=== PATIENT | female | born 1945 | race Caucasian/White ===

== ENCOUNTER → 2019-11-14 | Outpatient (CLI) | payer MEDICARE, OTHER ==
[~2019-11-14] MED LIST: Cyclobenzaprine5 MG PO; ESTR2 PO; LOSA50 PO; NAPR550 PO; Norco 5-325 Ta1 EACH PO; PARO10 PO; Percocet 5-3251 EACH PO; Robaxin500 MG PO; SIMV40 PO; Voltaren100 GM PO; ZOLP10 PO; [UNRECOGNIZED DRUG - REMARK]; [UNRECOGNIZED DRUG - REMARK]
[2019-11-14 16:16] LABS: BASOPHILS PERCENT AUTO 1 % (0-2); EOSINOPHILS ABSOLUTE AUTO 0.26 K/mm3 (0.00-0.68); EOSINOPHILS PERCENT AUTO 3 % (0-6); Hematocrit 41.4 % (33.0-51.0); Hemoglobin 13.9 g/dL (11.5-16.0); IMMATURE GRAN ABSOLUTE AUTO 0.01 K/mm3 (0.00-0.10); IMMATURE GRAN PERCENT AUTO 0 % (0-1); LYMPHOCYTES ABSOLUTE AUTO 2.09 K/mm3 (0.84-5.20); LYMPHOCYTES PERCENT AUTO 27 % (21-46); MONOCYTES PERCENT AUTO 14 % (4-13); Mean Corpuscular HGB 31.4 pg (26.0-34.0); Mean Corpuscular HGB Conc 33.6 g/dL (31.5-36.5); Mean Corpuscular Volume 94 fL (80-100); Mean Platelet Volume 10.7 fL (9.1-12.4); NEUTROPHILS ABSOLUTE AUTO 4.18 K/mm3 (1.96-9.15); NEUTROPHILS PERCENT AUTO 54 % (41-73); Platelet Count 250 K/mm3 (150-400); RDW Coefficient Variation 13.3 % (11.7-14.2); RDW Standard Deviation 45.7 fL (35.1-46.3); Red Blood Cell Count 4.43 M/mm3 (3.80-5.20); White Blood Cell Count 7.74 K/mm3 (4.00-11.30)
[2019-11-14 16:29] LABS: Alanine Aminotransfer (ALT/SGP 33 U/L (12-78); Albumin, Blood 3.7 g/dL (3.4-5.0); Alk Phos 85 U/L (40-126); Anion Gap 12 mmol/L (6-16); Aspartate Aminotrans (AST/SGOT 21 U/L (12-37); Bilirubin, Total 0.2 mg/dL (0.1-1.0); Blood Urea Nitrogen 22 mg/dL (8-24); Bun/Creatinine Ratio 20.2 (12.0-20.0); CO2, Blood 25 mmol/L (21-32); Calcium, Blood 9.2 mg/dL (8.5-10.1); Chloride, Blood 103 mmol/L (98-108); Creatinine, Blood 1.09 mg/dL (0.40-1.00); Globulin, Blood 3.7 g/dL (2.2-4.0); Glomerular Filtration Rate 49 (60-); Glucose, Blood 93 mg/dL (70-99); Potassium, Blood 4.1 mmol/L (3.5-5.5); Sodium, Blood 140 mmol/L (136-145); Total Protein, Blood 7.4 g/dL (6.4-8.2)
[2019-11-14 16:30] LABS: Troponin I <0.017 ng/mL (0.000-0.040)
== END | disposition home or self-care (01) ==
LOC: LAB EV 16:11 → LAB SHORT 16:11
PROVIDERS: Physician Assistant
DX: R10.13 Epigastric pain (principal)
CPT/HCPCS: 80053; 83690; 84484; 85025

== ENCOUNTER 2020-07-22 11:20 | Day surgery (SDC) | payer MEDICARE, OTHER ==
[~2020-07-22] VITALS: Ht 167.6 cm; Wt 79.5 kg
[~2020-07-22 11:20] MED LIST changes: +B COMPLEX FORM0.4 MG PO; +BUSP5 PO; +CYCL10 PO; +Caltrate Plus1 EACH PO; +ESCI20 PO; +FAMO10 PO; +FAMO20 PO; +KRILL OIL500 MG PO; +MULTIVITAMINS1 EAC3 PO; +PANT40 PO; +PEPCID20 MG PO; +Zocor40 MG; +Zocor40 MG PO
--- NOTE | 2020-07-22 11:46 | NUR ---
07/22/20 1146 Mackenzie Quevedo CALL LIGHT WITHIN REACH
== END 2020-07-22 12:12 | disposition home or self-care (01) ==
LOC: ORSCSDS 11:20
PROVIDERS: Anesthesiology
PROC: 3E0R33Z Introduction of Anti-inflammatory into Spinal Canal, Percutaneous Approach (ICD-10-PCS; principal; 2020-07-22 12:30)
DX: M51.16 Intervertebral disc disorders with radiculopathy, lumbar region (principal); I10 Essential (primary) hypertension; F41.8 Other specified anxiety disorders; K21.9 Gastro-esophageal reflux disease without esophagitis; F41.9 Anxiety disorder, unspecified; E78.5 Hyperlipidemia, unspecified; Z79.899 Other long term (current) drug therapy
CPT/HCPCS: J1040

== ENCOUNTER 2020-11-19 11:16 | Day surgery (SDC) | payer MEDICARE, OTHER ==
[~2020-11-19] VITALS: Ht 167.6 cm; Wt 79.3 kg
--- NOTE | 2020-11-19 14:00 | NUR ---
11/19/20 1400 SIMON WOLF PT TO STEP DOWN VIA BED. TRANSFER TO RECLINER WITH SBA. IV PATNENT. VSS ON ROOM AIR. PT DENIES NAUSEA/PAIN AND REPORTS FOOT IS NUMB AT THIS TIME. PT TOLERATING PO INTAKE. ENGAGED IN DC TEACHING AND ALL QUESTIONS ASKED AND ANSWERED. IV DC'D.
== END 2020-11-19 13:57 | disposition home or self-care (01) ==
LOC: ORSCSDS 11:16
PROVIDERS: Podiatrist Foot & Ankle Surgery
PROC: 01BG0ZZ Excision of Tibial Nerve, Open Approach (ICD-10-PCS; principal; 2020-11-19 12:45)
DX: G57.62 Lesion of plantar nerve, left lower limb (principal); I10 Essential (primary) hypertension; E78.5 Hyperlipidemia, unspecified; F41.8 Other specified anxiety disorders; Z79.899 Other long term (current) drug therapy
CPT/HCPCS: 88304; J0171; J0690; J1100; J2250; J2405; J2704; J3010; J7120

== ENCOUNTER → 2021-11-26 | Outpatient (CLI) | payer MEDICARE, OTHER | END | disposition home or self-care (01) | LOC: LAB SHORT 15:12 | DX: R30.9 Painful micturition, unspecified (principal) | CPT/HCPCS: 87070; 87205 ==

== ENCOUNTER → 2022-01-03 | Outpatient (CLI) | payer MEDICARE, OTHER | END | disposition home or self-care (01) | LOC: LAB SHORT 14:59 | DX: D48.5 Neoplasm of uncertain behavior of skin (principal) | CPT/HCPCS: 88305 ==

== ENCOUNTER → 2022-03-24 | Outpatient (CLI) | payer MEDICARE, OTHER ==
[2022-03-25 07:02] LABS: Candida species (DNA Probe) Negative (NEGATIVE); G. vaginalis (DNA Probe) Negative (NEGATIVE); T. vaginalis (DNA Probe) Negative (NEGATIVE)
== END | disposition home or self-care (01) ==
LOC: LAB SHORT 13:41 → LAB 13:41
PROVIDERS: Family Medicine
DX: B37.3 Candidiasis of vulva and vagina (principal)
CPT/HCPCS: 87480; 87510; 87660

== ENCOUNTER 2022-07-25 10:16 | Day surgery (SDC) | payer MEDICARE, OTHER ==
[~2022-07-25] VITALS: Ht 167.6 cm; Wt 81.2 kg
[2022-07-25] MEDS ORDERED: PANT20 (11:22)
[2022-07-25] MEDS ORDERED: ESCI10 (11:22)
[2022-07-25] MEDS ORDERED: LOSA25 (11:22)
[2022-07-25] MEDS ORDERED: GABA100 (11:22)
[2022-07-25] MEDS ORDERED: SIMV80 (11:23)
== END 2022-07-25 12:00 | disposition home or self-care (01) ==
LOC: ORSCSDS 10:16
PROVIDERS: Anesthesiology
PROC: 3E0R33Z Introduction of Anti-inflammatory into Spinal Canal, Percutaneous Approach (ICD-10-PCS; principal; 2022-07-25 11:30)
DX: M51.16 Intervertebral disc disorders with radiculopathy, lumbar region (principal); M54.50 Low back pain, unspecified; I10 Essential (primary) hypertension; K21.9 Gastro-esophageal reflux disease without esophagitis; F32.A Depression, unspecified; E78.00 Pure hypercholesterolemia, unspecified; Z79.899 Other long term (current) drug therapy
CPT/HCPCS: J1040

== ENCOUNTER 2023-08-19 13:43 | Observation (INO) | payer MEDICARE, OTHER ==
[~2023-08-19] VITALS: Ht 167.6 cm; Wt 79.2 kg
[~2023-08-19 13:43] MED LIST changes: +ESCI10 PO; +GABA100; +LOSARTAN POTAS100 M1 PO; +PANT20 PO
[2023-08-19 14:26] LABS: BASOPHILS ABSOLUTE AUTO 0.06 K/mm3 (0.00-0.23); BASOPHILS PERCENT AUTO 1 % (0-2); EOSINOPHILS ABSOLUTE AUTO 0.01 K/mm3 (0.00-0.68); EOSINOPHILS PERCENT AUTO 0 % (0-6); Hemoglobin 14.2 g/dL (11.5-16.0); IMMATURE GRAN ABSOLUTE AUTO 0.03 K/mm3 (0.00-0.10); IMMATURE GRAN PERCENT AUTO 0 % (0-1); LYMPHOCYTES ABSOLUTE AUTO 2.15 K/mm3 (0.84-5.20); LYMPHOCYTES PERCENT AUTO 24 % (21-46); MONOCYTES ABSOLUTE AUTO 0.91 K/mm3 (0.16-1.47); MONOCYTES PERCENT AUTO 10 % (4-13); Mean Corpuscular HGB Conc 33.8 g/dL (31.5-36.5); Mean Corpuscular Volume 92 fL (80-100); Mean Platelet Volume 11.4 fL (9.1-12.4); NEUTROPHILS ABSOLUTE AUTO 5.76 K/mm3 (1.96-9.15); NEUTROPHILS PERCENT AUTO 65 % (41-73); Platelet Count 224 K/mm3 (150-400); RDW Coefficient Variation 13.7 % (11.7-14.2); RDW Standard Deviation 46.3 fL (35.1-46.3); Red Blood Cell Count 4.58 M/mm3 (3.80-5.20); White Blood Cell Count 8.92 K/mm3 (4.00-11.30)
[2023-08-19 14:47] LABS: Albumin, Blood 3.8 g/dL (3.4-5.0); Bilirubin, Total 0.4 mg/dL (0.1-1.0); Bun/Creatinine Ratio 23.8 (12.0-20.0); Calcium, Blood 9.3 mg/dL (8.5-10.1); Creatinine, Blood 1.05 mg/dL (0.40-1.00); Globulin, Blood 3.8 g/dL (2.2-4.0); Potassium, Blood 3.7 mmol/L (3.5-5.5); Total Protein, Blood 7.6 g/dL (6.4-8.2)
[2023-08-19] MEDS ORDERED: GABA800 PO (22:43)
[2023-08-19 23:36] VITALS: BP 192/60
[2023-08-20] VITALS (7 sets, daily range): BP systolic 150–186; BP diastolic 56–73
--- NOTE | 2023-08-20 01:47 | NUR ---
PT ARRIVED TO UNIT AT 2250. PT AMBULATES WITH STEADY GAIT, UP AD QUE TO THE HOSPITAL BED. PT A&O x4, AFEBRILE. PT ADMITTED FOR BRADYCARDIA. PT C/O UPPER ABD PAIN, BUT THAT HAS RESOLVED. PT ON RA, LUNGS SOUNDS CTA, RESP RATE EVEN AND UNLABORED. NO SKIN ISSUES NOTED DURING THE NURSING HEAD-TOE ASSESSMENT. PT DENIED CP/SOB, NO C/O PAIN. PT ABLE TO MAKE NEEDS KNOWN. CALL LIGHT WITHIN REACH WCTM.
[2023-08-20 04:32] LABS: BASOPHILS ABSOLUTE AUTO 0.08 K/mm3 (0.00-0.23); BASOPHILS PERCENT AUTO 1 % (0-2); EOSINOPHILS ABSOLUTE AUTO 0.02 K/mm3 (0.00-0.68); EOSINOPHILS PERCENT AUTO 0 % (0-6); Hematocrit 40.7 % (33.0-51.0); Hemoglobin 13.7 g/dL (11.5-16.0); IMMATURE GRAN ABSOLUTE AUTO 0.02 K/mm3 (0.00-0.10); IMMATURE GRAN PERCENT AUTO 0 % (0-1); LYMPHOCYTES ABSOLUTE AUTO 2.13 K/mm3 (0.84-5.20); LYMPHOCYTES PERCENT AUTO 20 % (21-46); MONOCYTES ABSOLUTE AUTO 1.21 K/mm3 (0.16-1.47); MONOCYTES PERCENT AUTO 12 % (4-13); Mean Corpuscular HGB 30.5 pg (26.0-34.0); Mean Corpuscular HGB Conc 33.7 g/dL (31.5-36.5); Mean Corpuscular Volume 91 fL (80-100); Mean Platelet Volume 11.2 fL (9.1-12.4); NEUTROPHILS ABSOLUTE AUTO 6.97 K/mm3 (1.96-9.15); NEUTROPHILS PERCENT AUTO 67 % (41-73); Platelet Count 226 K/mm3 (150-400); RDW Coefficient Variation 13.8 % (11.7-14.2); RDW Standard Deviation 46.4 fL (35.1-46.3); Red Blood Cell Count 4.49 M/mm3 (3.80-5.20); White Blood Cell Count 10.43 K/mm3 (4.00-11.30)
[2023-08-20 05:01] LABS: Albumin, Blood 3.5 g/dL (3.4-5.0); Albumin/Globulin Ratio 0.9 (0.8-1.8); Bilirubin, Total 0.4 mg/dL (0.1-1.0); Bun/Creatinine Ratio 24.3 (12.0-20.0); Calcium, Blood 9.3 mg/dL (8.5-10.1); Creatinine, Blood 1.11 mg/dL (0.40-1.00); Globulin, Blood 3.7 g/dL (2.2-4.0); Potassium, Blood 4.1 mmol/L (3.5-5.5); Total Protein, Blood 7.2 g/dL (6.4-8.2)
--- NOTE | 2023-08-20 18:40 | NUR ---
SHIFT SUMMARY PT A&OX4 AND PLEASANT. INDEPENDENT IN ROOM. PT WORKED WITH PHYSICAL THERAPY AND OT TODAY AND DID WELL. PT STARTED FIRST PART OF STRESS TEST TODAY. NO CAFFINE OR CHOCOLATE FOR PT AFTER 2000 TONIGHT AND PT IS TO BE NPO AFTER BREAKFAST FOR SECOND PART OF STRESS TEST AT 1400. NO C/O PAIN. PT DID VERBALIZED FEELING CONSTIPATED AND HAD A COUPLE EPISODES OF HARD PELLET STOOL. PT VERBALIZED WANTING TO TAKE STOOL SOFTENER TONIGHT. ABD XRAY AND ECHO PERFORMED TODAY. BP REMAINS ELEVATED DR HAMILTON NOTIFIED AND EMAR UPDATED. BED IN LOWEST POSITION AND CALL LIGHT IN REACH.
[2023-08-21 04:53] VITALS: BP 129/56
--- NOTE | 2023-08-21 04:58 | NUR ---
SHIFT SUMMARY 78 YR F ADMITTED ON 08/19/23 FOR BRADYCARDIA. FULL CODE. NO ACUTE CHANGES THIS SHIFT. LATE THIS A.M. PT STATED SHE HAD A BM BUT THAT IT CONSISTED OF HARD STOOL. SHE HAD AT LEAST 1 HARD STOOL BM YESTERDAY WELL. SHE HAS ASKED FOR STOOL SOFTNERS BUT PER EMAR THERE IS A PARAMETER ON IT PRN IF NO BM IN 2 DAYS. PT IS VERY PLEASANT AND COOPERATIVE WITH CARE. SHE IS INDEPENDANT IN THE ROOM AND HAS SLEPT FOR MOST OF THIS SHIFT. BP THIS A.M. IS WITHIN NORMAL LIMITS.
[2023-08-21 08:04] VITALS: BP 130/64
[2023-08-21 10:28] VITALS: BP 135/57
[2023-08-21] MEDS ORDERED: AMLO10 PO (14:33)
[2023-08-21] MEDS ORDERED: HYDR10 PO (14:34)
[2023-08-21] MEDS ORDERED: HYDCHL12.5 PO (14:35)
[2023-08-21 15:21] VITALS: BP 141/65
--- NOTE | 2023-08-21 19:39 | NUR ---
PT DISCHARGED HOME. DC INSTRUCTIONS AND EDUCATION MATERIAL EXPLAINED TO PT. ALL QUESTIONS ANSWERED. IV AND TELE DC'D. MEDICATIONS FAXED TO PHARMACY OF PT'S CHOICE. ALL BELONGINGS GAHTERED AND SENT HOME WITH PT. PT WAS ABLE TO AMBULATED INDEPENDENTLY WITH FAMILY TO WAITING VEHICLE.
== END 2023-08-21 17:20 | disposition home or self-care (01) ==
LOC: ER 13:43 → MEDS 19:54
PROVIDERS: Emergency Medicine; ADMIT Internal Medicine
DX: R14.0 Abdominal distension (gaseous) (principal); R07.89 Other chest pain; R55 Syncope and collapse; R00.1 Bradycardia, unspecified; I12.9 Hypertensive chronic kidney disease with stage 1 through stage 4 chronic kidney disease, or unspecified chronic kidney disease; N18.30 Chronic kidney disease, stage 3 unspecified; G62.9 Polyneuropathy, unspecified; F32.9 Major depressive disorder, single episode, unspecified; K21.9 Gastro-esophageal reflux disease without esophagitis; E78.00 Pure hypercholesterolemia, unspecified
CPT/HCPCS: 36415; 70450; 71046; 74019; 78452; 80053; 83690; 84484; 85025; 93005; 93010; 93017; 93306; 96372; 96374; 96375; 97110; 97161; 99285-25; A9270; A9500; G0378; J0360; J0706; J1650; J2785